=== PATIENT | female | born 1965 | race African-American/Black ===

== ENCOUNTER 2016-11-21 09:42 | Emergency (ER) | payer MEDICAID ==
[~2016-11-21] VITALS: Ht 149.9 cm; Wt 30.0 kg
[~2016-11-21 09:42] MED LIST: PHEN473S12 PO
[2016-11-21] MEDS ORDERED: SODIUM CHLORIDE 0.9% 1,000 ML IV ONE (10:49)
[2016-11-21 11:22] LABS: BASOPHILS % 0.9 % (0.0-2.0); HEMATOCRIT. 36.7 % (36.0-48.0); LYMPHOCYTES % 24.2 % (20.0-50.0); MEAN CORPUSCULAR VOLUME 88.9 fL (81.0-99.0); MEAN PLATELET VOLUME 7.6 fl (7.4-10.4); MONOCYTES % 11.8 % (2.0-8.0); NEUTROPHILS % 61.1 % (40.0-76.0); PLATELET 453 x1000/uL (130-400); RED BLOOD CELL COUNT 4.13 mill/uL (4.2-5.4); RED CELL DISTRIBUTION WIDTH 14.1 % (11.6-14.6)
[2016-11-21 11:30] LABS: PROTHROMBIN TIME 10.4 sec (9.4-11.6)
[2016-11-21 11:44] LABS: CARBON DIOXIDE 29 mEq/L (21-32); CHLORIDE 105 mEq/L (98-107)
[2016-11-21 12:50] LABS: CLARITY URINE CLEAR (CLEAR); COLOR URINE YELLOW (YELLOW); GLUCOSE URINE NEGATIVE (NEGATIVE); KETONES URINE NEGATIVE (NEGATIVE); LEUKOCYTE ESTERASE URINE 2+ (NEGATIVE); NITRITE URINE POSITIVE (NEGATIVE); OCCULT BLOOD URINE NEGATIVE (NEGATIVE); PH URINE 5.5 (4.5-8.0); PROTEIN URINE NEGATIVE (NEGATIVE); SPECIFIC GRAVITY URINE 1.015 (1.005-1.030); UROBILINOGEN URINE 0.2 E.U./dL (0.2-1.0)
[2016-11-21] MEDS ORDERED: CEFTRIAXONE 1 G PREMIX 50 ML IV ONE (14:15)
[2016-11-21 14:17] VITALS: BP 126/74
== END 2016-11-21 15:35 | disposition home or self-care (01) ==
LOC: ER 09:42
DX: J18.9 Pneumonia, unspecified organism (principal); J44.0 Chronic obstructive pulmonary disease with (acute) lower respiratory infection; N39.0 Urinary tract infection, site not specified; F17.200 Nicotine dependence, unspecified, uncomplicated; F12.10 Cannabis abuse, uncomplicated; J98.19 Other pulmonary collapse; Z98.890 Other specified postprocedural states; Z91.040 Latex allergy status
CPT/HCPCS: 36415; 71010; 80053; 81001; 81025; 85025; 85610; 93005; 96361; 96365; 99285; J0696; J7030; Z7610

== ENCOUNTER 2017-07-29 00:14 | Emergency (ER) | payer MEDICAID ==
[~2017-07-29] VITALS: Ht 149.9 cm; Wt 33.1 kg
[2017-07-29] MEDS ORDERED: ACETAMINOPHEN WITH CODEINE 300/30MG TABLET PO ONE (06:30)
[2017-07-29 06:48] VITALS: BP 140/72
== END 2017-07-29 06:54 | disposition home or self-care (01) ==
LOC: ER 00:14
DX: L03.115 Cellulitis of right lower limb (principal); M79.674 Pain in right toe(s); F17.200 Nicotine dependence, unspecified, uncomplicated; F12.10 Cannabis abuse, uncomplicated; J45.909 Unspecified asthma, uncomplicated; Z91.040 Latex allergy status
CPT/HCPCS: 73660; 99284

== ENCOUNTER 2018-01-01 03:23 | Emergency (ER) | payer MEDICAID ==
[~2018-01-01] VITALS: Ht 149.9 cm; Wt 41.0 kg
[2018-01-01] MEDS ORDERED: IBUPROFEN 600MG TABLET PO STA (06:48)
[2018-01-01 07:02] VITALS: BP 143/71
== END 2018-01-01 07:28 | disposition home or self-care (01) ==
LOC: ER 05:07
DX: J06.9 Acute upper respiratory infection, unspecified (principal); H92.01 Otalgia, right ear; M79.674 Pain in right toe(s); D64.9 Anemia, unspecified; J45.909 Unspecified asthma, uncomplicated; F12.10 Cannabis abuse, uncomplicated; F17.200 Nicotine dependence, unspecified, uncomplicated; Z98.890 Other specified postprocedural states; Z91.040 Latex allergy status; Z79.899 Other long term (current) drug therapy
CPT/HCPCS: 71045; 99283

== ENCOUNTER 2018-03-15 08:50 | Emergency (ER) | payer MEDICAID ==
[~2018-03-15] VITALS: Ht 149.9 cm; Wt 39.0 kg
[2018-03-15] MEDS ORDERED: SODIUM CHLORIDE 0.9% 1,000 ML IV ONE (10:15)
[2018-03-15] MEDS ORDERED: ONDANSETRON HCL 4MG/2ML INJ IV ONE (10:30)
[2018-03-15 10:48] LABS: CLARITY URINE CLOUDY (CLEAR); COLOR URINE YELLOW (YELLOW); KETONES URINE NEGATIVE (NEGATIVE); LEUKOCYTE ESTERASE URINE 3+ (NEGATIVE); NITRITE URINE NEGATIVE (NEGATIVE); OCCULT BLOOD URINE NEGATIVE (NEGATIVE); PH URINE 7.5 (4.5-8.0); PROTEIN URINE NEGATIVE (NEGATIVE); SPECIFIC GRAVITY URINE 1.018 (1.005-1.030); UROBILINOGEN URINE 0.2 E.U./dL (0.2-1.0)
[2018-03-15] MEDS ORDERED: KETOROLAC 30MG/ML VIAL IV ONE (11:30)
[2018-03-15 12:47] VITALS: BP 154/65
== END 2018-03-15 13:42 | disposition home or self-care (01) ==
LOC: ER 08:50
DX: J40 Bronchitis, not specified as acute or chronic (principal); N39.0 Urinary tract infection, site not specified; Z87.891 Personal history of nicotine dependence; Z98.890 Other specified postprocedural states; Z91.040 Latex allergy status
CPT/HCPCS: 71045; 81003; 87077; 87086; 87186; 96361; 96374; 96375; 99284; J1885; J2405; J7030; Z7610

== ENCOUNTER 2018-04-09 07:17 | Emergency (ER) | payer MEDICAID, OTHER ==
[~2018-04-09] VITALS: Ht 149.9 cm; Wt 41.0 kg
[2018-04-09] MEDS ORDERED: ALBUTEROL (0.083%) 2.5MG/3ML NEB HHN STA (09:52)
[2018-04-09] MEDS ORDERED: IPRATROPIUM BROMIDE (0.02%) 0.5MG/2.5ML NEB HHN STA (09:52)
[2018-04-09] MEDS ORDERED: PREDNISONE 20MG TABLET PO STA (09:52)
[2018-04-09] MEDS ORDERED: ACETAMINOPHEN 325MG TABLET PO ONE (10:00)
[2018-04-09 12:25] VITALS: BP 108/60
== END 2018-04-09 12:27 | disposition home or self-care (01) ==
LOC: ER 07:17
DX: J45.901 Unspecified asthma with (acute) exacerbation (principal); J20.9 Acute bronchitis, unspecified; F17.210 Nicotine dependence, cigarettes, uncomplicated; F12.90 Cannabis use, unspecified, uncomplicated; Z91.040 Latex allergy status
CPT/HCPCS: 71045; 94640; 99283; J7512; J7611

== ENCOUNTER 2018-08-13 22:02 | Emergency (ER) | payer MEDICAID ==
[~2018-08-13] VITALS: Ht 149.9 cm; Wt 46.0 kg
[2018-08-13] MEDS ORDERED: PREDNISONE 20MG TABLET PO STA (22:47)
[2018-08-13] MEDS ORDERED: IPRATROPIUM BROMIDE (0.02%) 0.5MG/2.5ML NEB HHN STA (22:47)
[2018-08-13] MEDS ORDERED: ALBUTEROL (0.083%) 2.5MG/3ML NEB HHN STA (22:47)
[2018-08-13] MEDS ORDERED: ASPIRIN 81MG TABLET PO ONE (23:00)
[2018-08-13] MEDS ORDERED: MAGNESIUM 2 G PREMIX 50 ML IV ONE (23:00)
[2018-08-13 23:24] LABS: BASOPHILS % 0.7 % (0.0-2.0); EOSINOPHILS % 1.1 % (0.0-5.0); HEMATOCRIT. 38.6 % (36.0-48.0); HEMOGLOBIN. 12.5 g/dL (12.0-16.0); MEAN CORPUSCULAR HEMOGLOBIN 29.5 pg (28.0-32.0); MEAN PLATELET VOLUME 7.9 fl (7.4-10.4); MONOCYTES % 10.4 % (2.0-8.0); NEUTROPHILS % 41.8 % (40.0-76.0); PLATELET 408 x1000/uL (130-400); RED BLOOD CELL COUNT 4.24 mill/uL (4.2-5.4); RED CELL DISTRIBUTION WIDTH 13.9 % (11.6-14.6)
[2018-08-13 23:26] LABS: CHLORIDE 106 mEq/L (98-107)
[2018-08-13] MEDS ORDERED: POTASSIUM CHLORIDE 20MEQ TABLET SR PO NR (23:45)
[2018-08-14] MEDS ORDERED: POTASSIUM CHLORIDE INJ 40 MEQ in DEXT 5% WATER 500 ML IV NR (00:30)
[2018-08-14 12:30] VITALS: BP 136/68
== END 2018-08-14 12:55 | disposition home or self-care (01) ==
LOC: ER 22:02 → CANBEDREQ 08-14 05:18 → ER 08-14 12:55
DX: J44.1 Chronic obstructive pulmonary disease with (acute) exacerbation (principal); R46.89 Other symptoms and signs involving appearance and behavior; R50.9 Fever, unspecified; Z91.040 Latex allergy status; F17.290 Nicotine dependence, other tobacco product, uncomplicated
CPT/HCPCS: 36415; 71045; 80053; 83880; 84484; 85025; 93005; 94640; 96365; 96366; 96368; 99284; 99406; J3475; J3480; J7060; J7512; J7611; Z7610